=== PATIENT | female | born 1940 | race Caucasian/White ===

== ENCOUNTER → 2018-10-31 10:35 | Outpatient (CLI) | payer MEDICARE, OTHER ==
--- NOTE | 2018-11-02 14:39 | ST ---
PATIENT:LD BLUM MEDICAL RECORD: [id number] SEX: F LOCATION:[facility] ORDER #: ADMISSION DATE: 10/31/18 AGE OF PATIENT: 78 REFERRING PHYSICIAN: INTERPRETING PHYSICIAN: SHAHEED FERMIN MD DATE OF SERVICE: 10/31/2018 PROCEDURE: Nuclear stress test. INDICATION: Angina, shortness of breath, hyperlipidemia. She was exercised on standard Ricrado protocol for 5 minutes, terminated due to achievement of maximum target heart rate response with 33 mCi of sestamibi injected at peak stress, 11 mCi were used previously for rest images. FINDINGS: Gated SPECT reveals preserved ejection fraction at 72% with good wall motion and thickening and brightening throughout all segments. SPECT imaging Cardiolite was used as myocardial fusion agent. There is homogeneous uptake throughout all segments at rest and stress with no evidence of inducible ischemia or previous infarction. OVERALL IMPRESSION: 1. This is a normal nuclear stress test with no evidence of inducible ischemia or previous infarction. 2. Gated SPECT reveals a preserved ejection fraction at 72%. In this patient with ongoing symptomatology, the current scan does not suggest the presence of hemodynamically significant coronary artery disease. Evaluate noncardiac etiology of chest pain. TRANSINT:[id number] Voice Confirmation ID: [id number] DOCUMENT ID: [id number] SHAHEED FERMIN MD at 1439 CC: [id number] DICTATION DATE: 10/31/18 1536 LAUNCHING PAD MECHANIC: 11/01/18 1319 DEP CLI 10/31/18 [place] [id number]
--- NOTE | 2018-11-09 13:33 | EC ---
PATIENT:LD BLUM DATE OF SERVICE: 10/31/18 SEX: F MEDICAL RECORD: [id number] DATE OF : 42 [facility] AGE OF PATIENT: 78 ADMISSION DATE: 10/31/18 REFERRING PHYSICIAN: INTERPRETING PHYSICIAN: GAL NG MD ECHOCARDIOGRAM REPORT ECHO CHARGES 4 ECHO COMPLETE Date: 10/31/18 CLINICAL DIAGNOSIS: HUBBARD/ANGINA/PALPITATIONS/ TACHYCARDIA/MURMUR ECHOCARDIOGRAPHIC MEASUREMENTS (adult normal given) AC root (d.<3.7cm) 3.1 cm LV Septum d (<1.2 cm> 1.0 cm Valve Excursion 2.2 cm LV Septum (systole) 1.7 cm Left Atria (s.<4.0cm> 3.4 cm LVPW d(<1.2cm) 1.1 cm RV (d.<2.3cm) 2.2 cm LVPW (sytole) 1.9 cm LV diastole(<5.6CM) 3.9 cm MV E-F(>70mm/sec) cm LV systole 2.0 cm LVOT Diameter 1.8 cm MV exc.(>10mm) cm Est.ejection fraction (50-75%) % DOPPLER: LVIT cm/sec A 48.0 cm/sec E 68.0 cm/sec LA cm/sec RVSP 40.0 mmHg LVOT 108 cm/sec AOP1/2T m/s Asc. Ao 107 cm/sec RVOT 57.0 cm/sec RA cm/sec PA 74.0 cm/sec AV Gradient Peak 4.6 mmHg AV Mean 2.4 mmHg AV Area 2.7 cm MV Gradient Peak 2.5 mmHg MV Mean 0.79 mmHg MV Area cm COMMENTS: OP - HC Installation Helper: 1 JENS CHRIS Powder Mill Operator: 3 Dr. Garcia TAPE# PACS Pericardial Effusion N DATE OF SERVICE: Adequate 2D echo, color flow and spectral Doppler, and M-Mode. No LVH. LV internal dimensions are normal. Wall motion is normal. EF is greater than or equal to 55%. Aortic valve is tricuspid. No evidence of stenosis on Doppler interrogation. Left atrium normal at 3.4 cm. Mitral valve shows no prolapse. Trace MR. Right-sided chambers grossly normal. Trace TR. TRANSINT:[id number] Voice Confirmation ID: [id number] DOCUMENT ID: [id number] ECHOCARDIOGRAM REPORT [id number] LD BLUM,GAL Lucas MD at 1333 CC: [id number] DICTATION DATE: 11/07/18 1256 BLENDING TANK TENDER: 11/07/18 1341 DEP CLI 10/31/18 [place] [id number] [place] [id number]
== END | disposition home or self-care (01) ==
LOC: D.HCCARDIO 10:35
PROVIDERS: ATTEND Internal Medicine Interventional Cardiology
DX: R06.09 Other forms of dyspnea (principal)